=== PATIENT | female | born 1975 ===

== ENCOUNTER 2016-11-30 02:24 | Emergency (ER) | payer OTHER ==
[2016-11-30 02:39] VITALS: BP 124/80; PULSE 77; RESP 20; TEMP 98; O2SAT 98
--- NOTE | 2016-11-30 03:03 | C.PDOC ---
Time Seen by Provider: 11/30/16 02:45 Chief Complaint (Nursing): Upper Extremity Problem/Injury Past Medical History Reviewed: Historical Data, Nursing Documentation, Vital Signs Vital Signs: Last Vital Signs Temp 98 F 11/30/16 02:32 Pulse 77 11/30/16 02:32 Resp 20 11/30/16 02:32 BP 124/80 11/30/16 02:32 Pulse Ox 98 11/30/16 02:32 Family History: States: Unknown Family Hx - Social History Hx Tobacco Use: No Hx Alcohol Use: Yes Hx Substance Use: No - Immunization History Hx Tetanus Toxoid Vaccination: No Hx Influenza Vaccination: No Hx Pneumococcal Vaccination: No ED Course And Treatment O2 Sat by Pulse Oximetry: 98 Disposition - 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 - Scribe Statement The provider has reviewed the documentation as recorded by the Scribe Elaine Rabago All medical record entries made by the Scribe were at my direction and personally dictated by me. I have reviewed the chart and agree that the record accurately reflects my personal performance of the history, physical exam, medical decision making, and the department course for this patient. I have also personally directed, reviewed, and agree with the discharge instructions and disposition.
--- NOTE | 2016-11-30 03:15 | C.PDOC ---
History Of Present Illness 41 year old female presents to the ED with complaints of swelling and redness to tattoo on the left wrist beginning yesterday. Patient had new tatto placed 5 days ago now notes tenderness with touch and is seeking evaluation. She denies fever, weakness, and numbness. Time Seen by Provider: 11/30/16 02:45 Chief Complaint (Nursing): Upper Extremity Problem/Injury History Per: Patient History/Exam Limitations: no limitations Onset/Duration Of Symptoms: Days (1 day ) Current Symptoms Are (Timing): Still Present Exacerbating Factor(s): Nothing Recent travel outside of the [place]: No Past Medical History Reviewed: Historical Data, Nursing Documentation, Vital Signs Vital Signs: Last Vital Signs Temp 98 F 11/30/16 02:32 Pulse 77 11/30/16 02:32 Resp 20 11/30/16 02:32 BP 124/80 11/30/16 02:32 Pulse Ox 98 11/30/16 05:15 Family History: States: Unknown Family Hx - Social History Hx Tobacco Use: No Hx Alcohol Use: Yes Hx Substance Use: No - Immunization History Hx Tetanus Toxoid Vaccination: No Hx Influenza Vaccination: No Hx Pneumococcal Vaccination: No Review Of Systems Constitutional: Negative for: Fever, Chills Skin: Positive for: Other (evlauation of tattoo redness and swelling) Physical Exam - Physical Exam Appears: Non-toxic, No Acute Distress Skin: Warm, Dry, Other (Tattoo visualized to antierior aspect of left wrist with minimal localized erythema and warmth. No fluctuance. 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 - Scribe Statement The provider has reviewed the documentation as recorded by the Scribe Elaine Rabago All medical record entries made by the Dezibkhoa were at my direction and personally dictated by me. I have reviewed the chart and agree that the record accurately reflects my personal performance of the history, physical exam, medical decision making, and the department course for this patient. I have also personally directed, reviewed, and agree with the discharge instructions and disposition.
== END 2016-11-30 03:33 | disposition home or self-care (01) ==
LOC: C.ER 02:24
DX: L03.114 Cellulitis of left upper limb (principal)

== ENCOUNTER 2017-12-23 12:24 | Emergency (ER) | payer MEDICAID, OTHER ==
[2017-12-23 12:40] VITALS: BMI 29.2
[2017-12-23 13:13] LABS: HCG,QUALITATIVE URINE NEGATIVE (NEGATIVE)
[2017-12-23 13:19] LABS: SQUAMOUS EPITHIAL 7 /hpf (0-5); URINE BILIRUBIN NEGATIVE (NEGATIVE); URINE BLOOD 3+ (NEGATIVE); URINE CLARITY Hazy (Clear); URINE GLUCOSE (UA) NORMAL (Normal); URINE LEUKOCYTE ESTERASE 2+ Leu/uL (Negative); URINE PROTEIN 2+ mg/dL (NEGATIVE); URINE UROBILINOGEN NORMAL mg/dL (0.2-1.0)
[2017-12-23 13:22] LABS: URINE COLOR Red (YELLOW)
--- NOTE | 2017-12-23 14:32 | C.PDOC ---
History Of Present Illness 42 y/o female with remote hx kidney stones, presents with gross hematuria, dysuria, urgency and frequency starting at 5 am today. no fever or chills. no nausea or vomiting. mild right back pain. denies vaginal discharge or vaginal bleeding. Time Seen by Provider: 12/23/17 13:24 Chief Complaint (Nursing): Female Genitourinary Past Medical History Vital Signs: Last Vital Signs Temp 98.0 F 12/23/17 12:41 Pulse 82 12/23/17 12:41 Resp 17 12/23/17 12:41 BP 136/89 12/23/17 12:41 Pulse Ox 100 12/23/17 12:41 Family History: States: Unknown Family Hx - Social History Hx Tobacco Use: No Hx Alcohol Use: Yes Hx Substance Use: No - Immunization History Hx Tetanus Toxoid Vaccination: No Hx Influenza Vaccination: No Hx Pneumococcal Vaccination: No ED Course And Treatment O2 Sat by Pulse Oximetry: 100 Medical Decision Making Medical Decision Making: ct results discussed with Dr Lr; he is not concerned with mesenteric stranding; however reports pt has fatty liver. 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 pt advised to stop drinking and go to detox if needed, as well as follow up with pmd for further liver workup. will tx for cystitis with macrobid. pt understands AND AGREES TO PLAN. Disposition Counseled Patient/Family Regarding: Studies Performed, Diagnosis, Need For Followup, Rx Given - Disposition Referrals: Juanito Rubi MD [Medical Doctor] - August Peña MD [Staff Provider] - Disposition: HOME/ ROUTINE Disposition Time: 15:57 Condition: GOOD Additional Instructions: Please stop drinking as we discussed. Need to follow up with Dr Rubi for further outpatient follow of fatty liver seen on ct scan today. Take Pyridium and antibiotics as prescribed. Drink increased fluids. Follow up with Dr Sharda Peña as well for blood in urine. Return to ER for any worse pain, fever. vomiting or any other concerns. pyridium turns your tears and urine orange- do not wear contact lenses when taking this medication. Prescriptions: Nitrofurantoin Macrocrystals [Macrobid] 100 mg PO BID #14 cap Phenazopyridine HCl [Pyridium] 100 mg PO TID #9 tablet Instructions: Blood in the Urine (Hematuria), Adult (DC), Acute Cystitis (DC) Forms: [facility] (Portuguese), General Discharge Instructions - Clinical Impression Clinical Impression: Hematuria, Cystitis, Fatty liver
[2017-12-23 14:53] VITALS: BP 135/84; PULSE 71; RESP 16; TEMP 97.9
[2017-12-23 14:55] VITALS: O2SAT 100
--- NOTE | 2017-12-23 15:17 | CT ---
Date of service: 12/23/2017 PROCEDURE: CT Abdomen and Pelvis without intravenous contrast HISTORY: right flank pain hematuria COMPARISON: None. TECHNIQUE: Multiple contiguous axial images were performed through the abdomen and pelvis without the use of intravenous contrast. Subsequently, sagittal and coronal reformatted images were obtained. Radiation dose: Total exam DLP = 685.26 mGy-cm. This CT exam was performed using one or more of the following dose reduction techniques: Automated exposure control, adjustment of the mA and/or kV according to patient size, and/or use of iterative reconstruction technique. FINDINGS: LOWER THORAX: Unremarkable. LIVER: Fatty infiltration of the liver. Focal fatty sparing adjacent to the gallbladder fossa. GALLBLADDER AND BILE DUCTS: Unremarkable. PANCREAS: Unremarkable. No gross lesion or ductal dilatation. Minimal mesenteric fat stranding seen posterior to the midbody of the pancreas at the level of the SMA takeoff, nonspecific. SPLEEN: Unremarkable. ADRENALS: Unremarkable. No mass. KIDNEYS AND URETERS: Unremarkable. No hydronephrosis. No solid mass. Punctate hypodensity emanating off the upper pole of the left kidney measuring 5 millimeters, too small to adequately characterize. VASCULATURE: Unremarkable. No aortic aneurysm. BOWEL: Unremarkable. No obstruction. No gross mural thickening. Under distended descending and sigmoid colons. Small hiatal hernia. APPENDIX: No findings to suggest acute appendicitis. PERITONEUM: Unremarkable. No free fluid. No free air. LYMPH NODES: Few shotty para-aortic, mesenteric, and inguinal lymph nodes. BLADDER: Unremarkable. REPRODUCTIVE: Heterogeneous uterus, endometrium, and bilateral adnexa. BONES: Degenerative changes in the spine. Sclerosis at the bilateral SI joints. [place] sacralization of the bilateral aspects of the L5 vertebral body. OTHER FINDINGS: Please note a portion of the upper abdomen was not imaged on this study. IMPRESSION: Please note a portion of the upper abdomen was not imaged on this study. 1. Fatty infiltration of the liver. Focal fatty sparing adjacent to the gallbladder fossa. 2. Minimal mesenteric fat stranding seen posterior to the midbody of the pancreas at the level of the SMA takeoff, nonspecific. Clinical correlation. 3. Under distended descending and sigmoid colons. 4. Small hiatal hernia. Additional findings as above.
== END 2017-12-23 16:21 | disposition home or self-care (01) ==
LOC: C.ER 12:24
DX: N30.91 Cystitis, unspecified with hematuria (principal); K76.0 Fatty (change of) liver, not elsewhere classified

== ENCOUNTER 2018-03-13 11:28 | Emergency (ER) | payer MEDICAID, OTHER ==
[2018-03-13 11:28] VITALS: BMI 29.2
[2018-03-13 11:57] VITALS: BP 113/75; PULSE 84; RESP 18; TEMP 98.2; O2SAT 98
--- NOTE | 2018-03-13 13:22 | RAD ---
Date of service: 03/13/2018 HISTORY: COUGH COMPARISON: No prior study available comparison however correlation made with CT scan abdomen pelvis 02/22/2018 which imaged both lung bases. TECHNIQUE: Chest PA and lateral FINDINGS: LUNGS: Poor inspiration with low lung volumes, crowded bronchovascular markings and minor bibasilar atelectasis.. PLEURA: No significant pleural effusion identified. No pneumothorax apparent. CARDIOVASCULAR: No discernible aortic atherosclerotic calcification present. Heart size is upper limits of normal.. No pulmonary vascular congestion. OSSEOUS STRUCTURES: No significant abnormalities. VISUALIZED UPPER ABDOMEN: Normal. OTHER FINDINGS: None. IMPRESSION: Poor inspiration with low lung volumes, crowded bronchovascular markings and minor bibasilar atelectasis..
--- NOTE | 2018-03-13 14:06 | C.PDOC ---
History Of Present Illness 42 year old female presents to the ED for evaluation of nonproductive cough, runny nose, sore throat, and mild body aches which began yesterday. Patient denies fever, chills, chest pain, shortness of breath, nausea, vomiting and diarrhea. Time Seen by Provider: 03/13/18 12:01 Chief Complaint (Nursing): Cough, Cold, Congestion History Per: Patient History/Exam Limitations: no limitations Onset/Duration Of Symptoms: Hrs Current Symptoms Are (Timing): Still Present Associated Symptoms: Sore Throat, Cough. denies: Fever, Chills, Sputum, Nausea, Vomiting, Diarrhea Additional History Per: Patient Past Medical History Reviewed: Historical Data, Nursing Documentation, Vital Signs Vital Signs: Last Vital Signs Temp 98.2 F 03/13/18 11:54 Pulse 84 03/13/18 11:54 Resp 18 03/13/18 11:54 BP 113/75 03/13/18 11:54 Pulse Ox 98 03/13/18 11:54 - Medical History PMH: No Chronic Diseases Surgical History: No Surg Hx Family History: States: Unknown Family Hx - Social History Hx Tobacco Use: No Hx Alcohol Use: Yes Hx Substance Use: No - Immunization History Hx Tetanus Toxoid Vaccination: No Hx Influenza Vaccination: No Hx Pneumococcal Vaccination: No Review Of Systems Constitutional: Negative for: Fever, Chills ENT: Positive for: Nose Discharge, Throat Pain Cardiovascular: Negative for: Chest Pain Respiratory: Positive for: Cough. Negative for: Shortness of Breath, Sputum Gastrointestinal: Negative for: Nausea, Vomiting, Diarrhea Musculoskeletal: Positive for: Other (mild body aches ) Physical Exam - Physical Exam Appears: Non-toxic, No Acute Distress, Other (comfortable ) Skin: Normal Color, Warm, Dry Head: Atraumatic, Normacephalic Eye(s): bilateral: Normal Inspection Ear(s): Bilateral: Normal Nose: Other (rhinorrhea ) Oral Mucosa: Moist Throat: Erythema (mild ), No Other (tonsillar swelling or exudates ) Neck: Supple Chest: Symmetrical, No Deformity, No Tenderness Cardiovascular: Rhythm Regular, No Murmur Respiratory: Normal Breath Sounds, No Rales, No Rhonchi, No Wheezing, Other (speaking in complete sentences ) Extremity: Normal ROM, Capillary Refill (less than 2 seconds ) Neurological/Psych: Oriented x3, Normal Speech, Normal Cognition ED Course And Treatment O2 Sat by Pulse Oximetry: 98 (on RA ) Pulse Ox Interpretation: Normal - Other Rad CXR X-Ray: Viewed By Me, Read By Radiologist Interpretation: Date of service: 03/13/2018. HISTORY: COUGH. COMPARISON: No prior study available comparison however correlation made with CT scan abdomen pelvis 02/22/2018 which imaged both lung bases. TECHNIQUE: Chest PA and lateral. FINDINGS: LUNGS: Poor inspiration with low lung volumes, crowded bronchovascular markings and minor bibasilar atelectasis.. PLEURA: No significant pleural effusion identified. No pneumothorax apparent. CARDIOVASCULAR: No discernible aortic atherosclerotic calcification present. Heart size is upper limits of normal.. No pulmonary vascular congestion. OSSEOUS STRUCTURES: No significant abnormalities. VISUALIZED UPPER ABDOMEN: Normal. OTHER FINDINGS: None. IMPRESSION: Poor inspiration with low lung volumes, crowded bronchovascular markings and minor bibasilar atelectasis.. Progress Note: CXR ordered, results are unremarkable. On reassessment, patient is resting comfortably, showing no signs of distress and is stable for discharge. Patient will be given Rx for Sudafed for nasal congestion, Tessalon Perles for cough, and Naproxen for pain. Patient is advised to follow up with PMD within 1-2 days for further evaluation. Disposition Counseled Patient/Family Regarding: Studies Performed, Diagnosis, Need For Followup, Rx Given - Disposition Referrals: Juanito Rubi MD [Medical Doctor] - Disposition: HOME/ ROUTINE Disposition Time: 14:05 Condition: STABLE Additional Instructions: FOLLOW UP WITH YOUR DOCTOR IN 1-2 DAYS DRINK PLENTY OF FLUIDS RETURN TO ER IF SYMPTOMS WORSEN Prescriptions: Benzonatate [Tessalon Perles] 100 mg PO BID PRN #15 sgl PRN Reason: Cough Naproxen 375 mg PO BID PRN #20 tablet PRN Reason: pain Pseudoephedrine [Sudafed] 60 mg PO Q6 PRN #12 tab PRN Reason: Nasal Congestion Instructions: Upper Respiratory Infection (ED) Forms: [facility] (Yakut), Work Excuse Print Language: UPPER SORBIAN - Clinical Impression Clinical Impression: Viral disease, Upper respiratory infection - Scribe Statement The provider has reviewed the documentation as recorded by the Scribe (Yasmine Molina) Provider Attestation: All medical record entries made by the Scribe were at my direction and personally dictated by me. I have reviewed the chart and agree that the record accurately reflects my personal performance of the history, physical exam, medical decision making, and the department course for this patient. I have also personally directed, reviewed, and agree with the discharge instructions and disposition.
== END 2018-03-13 14:11 | disposition home or self-care (01) ==
LOC: C.ER 11:28
DX: J06.9 Acute upper respiratory infection, unspecified (principal)